=== PATIENT | female | born 1980 | race Caucasian/White ===

== ENCOUNTER → 2018-03-16 | Outpatient (CLI) | payer BC | END | disposition home or self-care (01) | LOC: CDC 14:34 | DX: Z01.810 Encounter for preprocedural cardiovascular examination (principal) | CPT/HCPCS: 93000 ==

== ENCOUNTER 2018-04-19 07:05 | Day surgery (SDC) | payer BC ==
[~2018-04-19] VITALS: Ht 160 cm; Wt 74.4 kg
[~2018-04-19 07:05] MED LIST: EFFEXOR XR37.5 MG PO; LISINOPRIL10 MG PO; PROBIOTIC1 EAC3 PO
[2018-04-19 07:38] VITALS: BP 129/85
[2018-04-19] MEDS ORDERED: MOTRIN800 MG PO (11:41)
[2018-04-19] MEDS ORDERED: PERCOCET 5/31 TABLET PO (11:41)
[2018-04-19 12:33] VITALS: BP 128/100
[2018-04-19 13:30] VITALS: BP 138/93
== END 2018-04-19 13:30 | disposition home or self-care (01) ==
LOC: SDC 07:05
PROC: 0DNW4ZZ Release Peritoneum, Percutaneous Endoscopic Approach (ICD-10-PCS; principal; 2018-04-19)
DX: N73.6 Female pelvic peritoneal adhesions (postinfective) (principal); N83.12 Corpus luteum cyst of left ovary; I10 Essential (primary) hypertension; F17.210 Nicotine dependence, cigarettes, uncomplicated
CPT/HCPCS: J0131; J0690; J2250; J2405; J3010; S0020